=== PATIENT | female | born 1990 | race African-American/Black ===

== ENCOUNTER 2021-06-02 09:47 | Outpatient (CLI) | payer OTHER ==
--- NOTE | 2021-06-02 17:23 | XRAY Report ---
PROCEDURE: Chest 2 View X-Ray INDICATIONS: SHORTNESS OF BREATH TECHNIQUE: 2 view(s) of the chest. COMPARISON: None. FINDINGS: Surgical changes and devices: None. Lungs and pleura: No pleural effusions or pneumothorax. Lungs are clear. Mediastinum: Mediastinal contours are normal. Heart size is normal. Bones and chest wall: No suspicious bony abnormalities. Soft tissues appear unremarkable. IMPRESSION: No acute pulmonary process. Reviewed by: Swapna Bolaños MD on 06/02/2021 5:22 PM [facility] Approved by: Swapna Bolaños MD on 06/02/2021 5:22 PM [facility] Station ID: [id number]
== END 2021-06-02 23:59 | disposition home or self-care (01) ==
LOC: DI.N 09:47
PROVIDERS: ATTEND Nurse Practitioner
DX: R06.02 Shortness of breath (principal)

== ENCOUNTER 2021-08-11 17:35 | Emergency (ER) | payer OTHER ==
--- NOTE | 2021-08-11 18:29 | XRAY Report ---
PROCEDURE: Hip w/Pelvis 2-3V RT INDICATIONS: R hip pain, no injury TECHNIQUE: AP pelvis with lateral view(s) of the right hip(s). COMPARISON: None. FINDINGS: Bones: No fractures or dislocations. Pelvic ring appears intact. No suspicious bony lesions. Soft tissues: The visualized bowel gas pattern is normal. No suspicious soft tissue calcifications. IMPRESSION: No gross acute right hip fracture or dislocation. No evidence of avascular necrosis of f emoral head. Reviewed by: Jose Francisco Fraga MD on 08/11/2021 6:28 PM PST Approved by: Jose Francisco Fraga MD on 08/11/2021 6:28 PM PST Station ID: [id number]
[2021-08-11] MEDS ORDERED: KETOROLAC 60 MG/2 ML VIAL IM STA (18:30)
--- NOTE | 2021-08-11 18:33 | ED Physician Documentation ---
History of Present Illness - Stated complaint Stated Complaint: RT HIP PAIN - Chief complaint Chief Complaint: Ext Problem - History obtained from History obtained from: Patient - History of Present Illness Pain level max: 7 Pain level now: 4 - Additonal information Additional information: Patient is a 30-year-old female who presents to the emergency department complaining of right hip pain. She states that this started a few days ago when she was at work. She states that the patient had fallen and she was squatting on the floor next to him for about 20 minutes. She states that there was some soreness initially, but it is gradually worsened over the past 2 days. She states that she took ibuprofen and Tylenol without relief. Worse with movement, better with rest. No fall or trauma Patient denies any possibility of . Review of Systems Ten Systems: 10 systems reviewed and negative Constitutional: denies: Fever, Chills Nose: reports: Rhinorrhea / runny nose, Congestion, Other (Patient states that she has had mild rhinorrhea and congestion. 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 - Present Medications Home Medications: Ambulatory Orders Medication Instructions Recorded Confirmed Cyclobenzaprine [Flexeril] 10 mg PO TID PRN #20 tablet 08/11/21 Meloxicam [Mobic] 7.5 mg PO BID PRN #20 tablet 08/11/21 - Allergies Allergies/Adverse Reactions: Allergies Allergy/AdvReac Type Severity Reaction Status Date / Time No Known Drug Allergies Allergy Verified 08/11/21 17:37 - Social History Does the pt smoke?: No Smoking Status: Never smoker Does the pt drink ETOH?: Yes Does the pt have substance abuse?: No - Immunizations Immunizations are current?: Yes PD ED PE NORMAL - Vitals Vital signs reviewed: Yes - General General: Alert and oriented X 3, No acute distress - HEENT HEENT: Moist mucous membranes - Neck Neck: Supple, no meningeal sign - Cardiac Cardiac: RRR - Respiratory Respiratory: No respiratory distress, Clear bilaterally - Derm Derm: Warm and dry - Extremities Extremities: Other (Full range of motion of the right hip with no pain on passive range of motion. No skin changes. No pain with internal or external rotation of the hip. Neurovascularly intact.) - Neuro Neuro: Alert and oriented X 3 - Psych Psych: Normal mood, Normal affect Results - Vitals Vitals: Vital Signs - 24 hr 08/11/21 08/11/21 17:38 19:25 Temperature 37.1 C 37.5 C Heart Rate 103 H 87 Respiratory 18 18 Rate Blood Pressure 150/102 H 135/74 H O2 Saturation 100 100 Oxygen O2 Source Room air - Rads (name of study) Right hip x-ray Radiology: Final report received, EMP read contemporaneously, See rad report (No acute abnormality) PD MEDICAL DECISION MAKING - ED course Complexity details: reviewed results, considered differential, d/w patient ED course: 30-year-old female with what appears to be a right hip strain. There is pain with active range of motion, but not passive range of motion. No evidence of labrum tear or significant injury. We will place on anti-inflammatories and muscle relaxants for home. Encouraged gentle stretching. We will have her follow-up with her doctor for further care. Covid testing was also performed for the viral URI. Patient counseled regarding signs and symptoms for which I believe and urgent re-evaluation would be necessary. Patient with good understanding of and agreement to plan and is comfortable going home at this time This document was made in part using voice recognition software. While efforts are made to proofread this document, sound alike and grammatical errors may occur. Departure - Departure Disposition: 01 Home, Self Care Clinical Impression: Strain of right hip Qualifiers: Encounter type: initial encounter Qualified Code(s): S76.011A - Strain of muscle, fascia and tendon of right hip, initial encounter Condition: Good Instructions: ED Sprain Hip Follow-Up: Angel Murrell MD [Primary Care Provider] - Within 1 week Prescriptions: Cyclobenzaprine [Flexeril] 10 mg PO TID PRN #20 tablet PRN Reason: Spasms Meloxicam [Mobic] 7.5 mg PO BID PRN #20 tablet PRN Reason: Pain Comments: Your x-ray does not show any acute abnormalities today. You appear to have a hip strain. This should improve over the next few days. We will prescribe you anti-inflammatories and muscle relaxants for home. Continue to gently stretch your hip. Follow-up with your doctor for further care. You have a Covid test pending. You need to self quarantine until the result is done and negative. The results should be done in 24-48 hours. We will call with a positive result, the fastest way to get a negative result for confirmation though is to go to the hospital website at [email or web address], click on the my [facility] tab and sign up for the patient portal. If any of your friends and/or family need to be tested, they can call the hospital at [phone] for an appointment to have their Covid test. Discharge Date/Time: 08/11/21 19:37
[2021-08-11] MEDS ORDERED: CYCLOBENZAPRINE 10 MG TABLET PO STA (19:04)
[2021-08-11 19:26] VITALS: BP 135/74
== END 2021-08-11 19:37 | disposition home or self-care (01) ==
LOC: ED 17:35
DX: U07.1 COVID-19 (principal); S76.011A Strain of muscle, fascia and tendon of right hip, initial encounter; X58.XXXA Exposure to other specified factors, initial encounter; Y99.0 Civilian activity done for income or pay
CPT/HCPCS: 73502; 87635; 96372; 99283; 99284; A9270